=== PATIENT | male | born 1975 | race Caucasian/White ===

== ENCOUNTER 2022-07-24 19:19 | Observation (INO) ==
[2022-07-24] MEDS ORDERED: TRANDATE IVP STA (19:27)
[2022-07-24] MEDS ORDERED: ATIVAN IVP STA (19:30)
--- NOTE | 2022-07-24 19:34 | ED.PDOC ---
General ED Provider: Dr. DARREL GREENE Chief Complaint: Hypertension Stated Complaint: my bp is up---i am trying to stop drinking---i think i misunderstood instructions on my bp meds--i didnt know i was supposed to take both Time Seen by Provider: 07/24/22 19:23 Mode of Arrival: Walk-In Information Source: Patient Primary Care Provider: ANNE YEH Nursing and Triage Documentation Reviewed and Agree: Yes Does patient meet sepsis criteria?: No System Inflammatory Response Syndrome: Not Applicable Sepsis Protocol: For patient's 13 years and over: Temp is 96.8 and below OR 101 and greater Pulse >90 BPM Resp >20/minute Acutely Altered Mental Status Are patient's symptoms suggestive of a new infection, such as: -Pneumonia -Skin, Soft Tissue -Endocarditis -UTI -Bone, Joint Infection -Implantable Device -Acute Abdominal Infection -Wound Infection -Meningitis -Blood Stream Catheter Infection -Unknown Cardiovascular Complaint Exam Hypertension Complaint/Exam Onset/Duration: today Symptoms Are: Still present Timing: Constant Reported B/P Prior to Arrival: 220/120 Aggravating: Reports None Alleviating: Reports None Associated Signs and Symptoms: Reports Chest pain and Anxiety Related History: Reports Current Mendoza Inhibitors and Current Beta Kulwinder Cardiac Risk Factors: Reports Hypertension Recent Change in Medications: Yes A/V Nicking: No Papilledema Present: No JVD Present: No Carotid Bruit Present: No Femoral Pulses Bounding: Yes Differential Diagnoses: Hypertension, Hypertensive Crisis and Hypertensive Urgency Quality Indicator For Non-Traumatic Chest Pain/Syncope: EKG Performed Review of Systems Review Of Systems Constitutional: Reports No symptoms Eyes: Reports No symptoms Ears, Nose, Mouth, Throat: Reports No symptoms Respiratory: Reports Cough Cardiac: Reports Chest pain GI: Reports No symptoms : Reports No symptoms Musculoskeletal: Reports No symptoms Skin: Reports No symptoms Neurological: Reports No symptoms Endocrine: Reports No symptoms Hematologic/Lymphatic: Reports No symptoms All Other Systems: Reviewed and Negative [facility] Medical History Abnormal liver enzymes Ascending aortic aneurysm Elevated blood sugar Hypertension Transaminitis Family History FATHER FH: brain aneurysm Social History Alcohol intake: current Alcohol intake frequency: a few times a week Alcohol type: beer and other Substance use type: does not use Marital status: S SINGLE Lives independently: Yes Current gender identity: male Seatbelt use: always Water heater temperature set < 120 degrees: Yes Working smoke detector in home: Yes Physical Exam Physical Exam Appearance: Reports Well-appearing Ill-appearing: None Pain Distress: None Eyes: Reports TERRIE, EOMI and Conjunctiva clear ENT: Reports Ears normal, Nose normal and Oropharynx normal Neck: Supple Respiratory: Reports Airway patent, Breath sounds clear and Breath sounds equal Cardiovascular: Reports RRR, Pulses normal, No rub and No murmur GI/: Reports Soft, Nontender, No masses and Bowel sounds normal Musculoskeletal: Reports Normal strength, ROM intact, No edema and No calf tenderness Skin: Reports Warm, Dry and Normal color Neurological: Reports Sensation intact, Motor intact, Reflexes intact, Cranial nerves intact, Alert and Oriented Psychiatric: Reports Affect appropriate and Mood appropriate Interpretation Radiology Interpretation Radiology Interpretation By: Radiologist Radiology Results: Positive Exam Interpreted: CT Scan EKG Interpretation Time of EKG #1: 19:36 Rate: Normal Rhythm: Sinus Ectopy: None [place]: NL ST Segment: Normal Interpretation: nsr Critical Care Note Critical Care Note Total Critical Care Time (mins): 30 Course Course Hematology/Chemistry: 07/24/22 19:40 07/24/22 19:40 Orders, Labs, Meds: Lab Review 07/24/22 07/24/22 07/24/22 19:40 19:40 19:40 WBC 6.06 RBC 5.16 Hgb 15.0 Hct 44.1 MCV 85.5 MCH 29.1 MCHC 34.0 RDW Coeff of Sharlene 11.9 Plt Count 142 Immature Gran % (Auto) 0.3 Neut % (Auto) 65.7 Lymph % (Auto) 25.4 [place] % (Auto) 7.1 Eos % (Auto) 0.8 Baso % (Auto) 0.7 Neut # (Auto) 4.0 Lymph # (Auto) 1.5 [place] # (Auto) 0.4 Eos # (Auto) 0.1 Baso # (Auto) 0.0 Immature Gran # (Auto) 0.0 Sodium 136.9 Potassium 4.01 Chloride 105.5 Carbon Dioxide 25.0 Anion Gap 10.41 BUN 8.1 L Creatinine 0.71 Estimated GFR (MDRD) 118.00 BUN/Creatinine Ratio 11.40 Glucose 117.6 H Calcium 9.10 Total Bilirubin 0.98 AST 75.9 H ALT 121.3 H Alkaline Phosphatase 72.3 Troponin I < 0.012 Total Protein 8.05 Albumin 4.55 Globulin 3.50 Albumin/Globulin Ratio 1.30 Amylase 81.8 Lipase 59.9 TSH 1.040 Free T4 0.82 Urine Color Urine Clarity Urine pH Ur Specific [place] Urine Protein Urine Glucose (UA) Urine Ketones Urine Blood Urine Nitrite Urine Bilirubin Urine Urobilinogen Ur Leukocyte Esterase Urine Opiates Screen Ur Oxycodone Screen Urine Methadone Screen Ur Propoxyphene Screen Ur Barbiturates Screen U Tricyclic Antidepress Ur Phencyclidine Scrn Ur Amphetamine Screen U Methamphetamines Scrn U Benzodiazepines Scrn Urine Cocaine Screen U Cannabinoids Screen Plasma/Serum Alcohol < 10.0 Influ A Molecular Assay Influ B Molecular Assay SARS CoV-2 RNA Rapid STEPHANIE 07/24/22 07/24/22 07/24/22 19:45 19:45 20:25 WBC RBC Hgb Hct MCV MCH MCHC RDW Coeff of Sharlene Plt Count Immature Gran % (Auto) Neut % (Auto) Lymph % (Auto) [place] % (Auto) Eos % (Auto) Baso % (Auto) Neut # (Auto) Lymph # (Auto) [place] # (Auto) Eos # (Auto) Baso # (Auto) Immature Gran # (Auto) Sodium Potassium Chloride Carbon Dioxide Anion Gap BUN Creatinine Estimated GFR (MDRD) BUN/Creatinine Ratio Glucose Calcium Total Bilirubin AST ALT Alkaline Phosphatase Troponin I Total Protein Albumin Globulin Albumin/Globulin Ratio Amylase Lipase TSH Free T4 Urine Color Yellow Urine Clarity Clear Urine pH 8.0 Ur Specific [place] 1.020 Urine Protein Negative Urine Glucose (UA) Negative Urine Ketones Negative Urine Blood Negative Urine Nitrite Negative Urine Bilirubin Negative Urine Urobilinogen 0.2 Ur Leukocyte Esterase Negative Urine Opiates Screen Ur Oxycodone Screen Urine Methadone Screen Ur Propoxyphene Screen Ur Barbiturates Screen U Tricyclic Antidepress Ur Phencyclidine Scrn Ur Amphetamine Screen U Methamphetamines Scrn U Benzodiazepines Scrn Urine Cocaine Screen U Cannabinoids Screen Plasma/Serum Alcohol Influ A Molecular Assay Negative by naat Influ B Molecular Assay Negative by naat SARS CoV-2 RNA Rapid STEPHANIE Negative 07/24/22 20:25 WBC RBC Hgb Hct MCV MCH MCHC RDW Coeff of Sharlene Plt Count Immature Gran % (Auto) Neut % (Auto) Lymph % (Auto) [place] % (Auto) Eos % (Auto) Baso % (Auto) Neut # (Auto) Lymph # (Auto) [place] # (Auto) Eos # (Auto) Baso # (Auto) Immature Gran # (Auto) Sodium Potassium Chloride Carbon Dioxide Anion Gap BUN Creatinine Estimated GFR (MDRD) BUN/Creatinine Ratio Glucose Calcium Total Bilirubin AST ALT Alkaline Phosphatase Troponin I Total Protein Albumin Globulin Albumin/Globulin Ratio Amylase Lipase TSH Free T4 Urine Color Urine Clarity Urine pH Ur Specific [place] Urine Protein Urine Glucose (UA) Urine Ketones Urine Blood Urine Nitrite Urine Bilirubin Urine Urobilinogen Ur Leukocyte Esterase Urine Opiates Screen Negative Ur Oxycodone Screen Negative Urine Methadone Screen Negative Ur Propoxyphene Screen Negative Ur Barbiturates Screen Negative U Tricyclic Antidepress Negative Ur Phencyclidine Scrn Negative Ur Amphetamine Screen Negative U Methamphetamines Scrn Negative U Benzodiazepines Scrn Positive H Urine Cocaine Screen Negative U Cannabinoids Screen Negative Plasma/Serum Alcohol Influ A Molecular Assay Influ B Molecular Assay SARS CoV-2 RNA Rapid STEPHANIE Orders Category Date Time Status EKG-(ED ONLY) Stat CARDIO 07/24/22 19:21 Completed NPO REMINDER: IMAGING ONCE CARE 07/24/22 19:26 Completed ED BOARD LAYER APPLIED .ONCE EMERGENCY 07/24/22 19:21 Active ED IV/MEDIPORT/POWERPORT .ONCE EMERGENCY 07/24/22 19:21 Active AMYLASE Stat LAB 07/24/22 19:40 Completed BLOOD ALCOHOL Stat LAB 07/24/22 19:40 Completed CBC W/ AUTO DIFF Stat LAB 07/24/22 19:40 Completed COMPREHENSIVE METABOLIC PANEL Stat LAB 07/24/22 19:40 Completed FLU A & B MOLECULAR [FLU A/B MOLECULAR] Stat LAB 07/24/22 19:45 Completed FREE T4 (FREE THYROXINE) Stat LAB 07/24/22 19:40 Completed LIPASE Stat LAB 07/24/22 19:40 Completed SARS COV-2 RNA RAPID STEPHANIE Stat LAB 07/24/22 19:45 Completed THYROID STIMULATING HORMONE Stat LAB 07/24/22 19:40 Completed TROPONIN I Stat LAB 07/24/22 19:40 Completed URINALYSIS C & S IF INDICATED Stat LAB 07/24/22 20:25 Completed URINE DRUG SCREEN (RAPID FOR ED) [DRUG SCREEN, URINE, LAB 07/24/22 20:25 Completed RAPID] Stat 0.9 % Sodium Chloride [Saline Flush] MEDS 07/24/22 19:21 Active 1 syr IVF PRN PRN Enalaprilat Dihydrate [Vasotec IV] MEDS 07/24/22 19:56 Discontinued 1.25 mg IVP ONCE STA Labetalol HCl [Trandate] MEDS 07/24/22 19:27 Discontinued 20 mg IVP ONCE STA Lorazepam [Ativan] MEDS 07/24/22 19:30 Discontinued 1 mg IVP ONCE STA Nicardipine in NaCl, Iso-Osm [Cardene 20 mg/200 ml NaCl MEDS 07/24/22 20:32 Discontinued ] 20 mg in 200 ml IV .STK-MED Nicardipine in NaCl, Iso-Osm [Cardene 20 mg/200 ml NaCl MEDS 07/24/22 20:30 Active ] 20 mg in [address] CHEST PE PROTOCOL Stat RADS 07/24/22 19:26 Completed Medications Generic Name Dose Route Start Last Admin Trade Name Freq PRN Reason Stop Dose Admin Nicardipine/Sodium Chloride 20 mg in 200 mls @ 50 mls/hr 07/24/22 20:30 07/24/22 21:00 Cardene 20 Mg/200 Ml Nacl IV 7.5 mg/hr TITRATION IZABEL 75 mls/hr Titration Protocol 5 MG/HR Sodium Chloride 1 syr 07/24/22 19:21 0.9% Sodium Chloride 10 Ml Disp.Syrin IVF PRN PRN To flush IV Discontinued Medications Generic Name Dose Route Start Last Admin Trade Name Freq PRN Reason Stop Dose Admin Enalaprilat 1.25 mg 07/24/22 19:56 07/24/22 20:01 Enalaprilat Dihydrate 1.25 Mg/Ml Vial IVP 07/24/22 19:57 1.25 mg ONCE STA Administration Labetalol HCl 20 mg 07/24/22 19:27 07/24/22 19:43 Labetalol Hcl 20 Mg/4 Ml Disp.Syrin IVP 07/24/22 19:28 20 mg ONCE STA Administration Lorazepam 1 mg 07/24/22 19:30 07/24/22 19:43 Lorazepam Inj 2 Mg/Ml Vial IVP 07/24/22 19:31 1 mg ONCE STA Administration Vital Signs: Temp Pulse Resp BP Pulse Ox 07/24/22 19:31 98.6 F 109 H 20 209/143 H 96 YEYO Risk Score YEYO Risk Score: Risk Score Odds of by 30D 0 0.1 (0.1-0.2) 1 0.3 (0.2-0.3) 2 0.4 (0.3-0.5) 3 0.7 (0.6-0.9) 4 1.2 (1.0-1.5) 5 2.2 (1.9-2.6) 6 3.0 (2.5-3.6) 7 4.8 (3.8-6.1) Discharge Plan Discharge Patient Disposition: TSF SHORT-TRM HOSP Discharge Problem: Hypertensive urgency Prescriptions: No Action lisinopril 20 mg tablet 20 mg PO QDAY Qty: 30 0RF albuterol sulfate 90 mcg/actuation HFA aerosol inhaler 2 puff inhalation QID PRN (Reason: shortness of breath or wheezing) Qty: 8.5 0RF metoprolol succinate 50 mg tablet extended release 24 hr 50 mg PO QDAY 30 Days Qty: 30 0RF Did you review [place] PATIENT FINANCIAL ADVOCATE?: Not Applicable ED Provider: DARREL ROBLEDO Condition: Stable Physician Progress Note: []
[2022-07-24 19:36] VITALS: BMI 39.6
[2022-07-24 19:46] LABS: BASOPHILS % (AUTO) 0.7 % (0.0-3.0); EOSINOPHILS # (AUTO) 0.1 K/ul (0.0-0.7); EOSINOPHILS % (AUTO) 0.8 % (0.0-7.0); HEMATOCRIT 44.1 % (42.0-52.0); IMMATURE GRANULOCYTE % (AUTO) 0.3 % (0.0-5.0); LYMPHOCYTES # (AUTO) 1.5 K/uL (0.60-3.4); LYMPHOCYTES % (AUTO) 25.4 (10.0-50.0); MEAN CORPUSCULAR HEMOGLOBIN 29.1 pg (27.0-31.0); MEAN CORPUSCULAR VOLUME 85.5 fl (80.0-94.0); MONOCYTES # (AUTO) 0.4 K/uL (0.4-2.0); MONOCYTES % (AUTO) 7.1 (0-10); NEUTROPHILS % (AUTO) 65.7 % (42.2-75.2); PLATELET COUNT 142 10^3/uL (140-440); RDW COEFFICIENT OF VARIATION 11.9 % (11.6-14.8); RED BLOOD COUNT 5.16 10^6/ul (4.70-6.10); WHITE BLOOD COUNT 6.06 K/ul (4.2-10.2)
[2022-07-24] MEDS ORDERED: VASOTEC IV IVP STA (19:56)
[2022-07-24 19:58] LABS: ALANINE AMINOTRANSFERASE 121.3 U/L (0-50); ALBUMIN 4.55 g/dL (3.5-5.0); ALKALINE PHOSPHATASE 72.3 U/L (38-126); AMYLASE 81.8 U/L (30-110); ASPARTATE AMINO TRANSFERASE 75.9 U/L (17-59); BILIRUBIN,TOTAL 0.98 mg/dL (0.2-1.3); BLOOD UREA NITROGEN 8.1 mg/dL (9-20); CHLORIDE 105.5 mmol/L (98-107); CREATININE 0.71 mg/dL (0.60-1.10); GLUCOSE 117.6 mg/dL (74-106); LIPASE 59.9 U/L (23-300); POTASSIUM 4.01 mmol/L (3.5-5.1); SODIUM 136.9 mmol/L (134.5-145); TOTAL PROTEIN 8.05 g/dL (6.3-8.2)
[2022-07-24 20:06] LABS: BLOOD ALCOHOL < 10.0 mg/dL (0.0-50.0)
[2022-07-24 20:07] LABS: MOLECULAR FLU A NEGATIVE BY NAAT (NEGATIVE); MOLECULAR FLU B NEGATIVE BY NAAT (NEGATIVE)
[2022-07-24 20:21] LABS: TROPONIN I < 0.012 ng/ml (0.0000-0.120)
[2022-07-24 20:23] LABS: SARS COV-2 RNA RAPID NAAT NEGATIVE (NEGATIVE)
[2022-07-24] MEDS ORDERED: CARDENE 20 MG/200 ML NACL 20 MG/200 ML BAG IV SCH ×2 (20:30→23:00)
[2022-07-24 20:32] LABS: BILIRUBIN,URINE Negative (NEGATIVE); CLARITY,URINE Clear (CLEAR); COLOR,URINE Yellow (YELLOW); GLUCOSE, URINE (UA) Negative (NEGATIVE); KETONES,URINE Negative (NEGATIVE); LEUKOCYTE ESTERASE ,URINE Negative (NEGATIVE); NITRITE,URINE Negative (NEGATIVE); PROTEIN,URINE Negative (NEGATIVE); URINE, BLOOD Negative (NEGATIVE); UROBILINOGEN,URINE 0.2 (0.2)
[2022-07-24] MEDS ORDERED: CARDENE 20 MG/200 ML NACL 20 MG/200 ML BAG IV ONE (20:32)
[2022-07-24 20:43] LABS: AMPHETAMINE SCREEN,URINE NEGATIVE (NEGATIVE); BARBITURATE SCREEN,URINE NEGATIVE (NEGATIVE); BENZODIAZEPINES SCREEN,URINE POSITIVE (NEGATIVE); CANNABINOID SCREEN,URINE NEGATIVE (NEGATIVE); COCAIN SCREEN,URINE NEGATIVE (NEGATIVE); METHADONE URINE SCREEN NEGATIVE (NEGATIVE); METHAMPHETAMINES SCREEN,URINE NEGATIVE (NEGATIVE); OPIATE SCREEN,URINE NEGATIVE (NEGATIVE); OXYCODONE URINE SCREEN NEGATIVE (NEGATIVE); PHENCYCLIDINE SCREEN,URINE NEGATIVE (NEGATIVE); PROPOXYPHENE URINE SCREEN NEGATIVE (NEGATIVE); TRICYCLIC ANTIDEPRESSANTS URIN NEGATIVE (NEGATIVE)
--- NOTE | 2022-07-24 21:06 | CT ---
EXAM: CTA of the pulmonary arteries with contrast TECHNIQUE: CTA of the pulmonary arteries was performed with contrast. 2-D and 3-D reconstructions we re performed. HISTORY: Chest pain. History of aneurysm. COMPARISON: None. FINDINGS: Pulmonary arteries: No pulmonary embolus detected. Lungs/pleura: No mass or consolidation. No pleural effusion. Mediastinum: No adenopathy. Cardiovascular: No pericardial effusion. There is a 4.4 cm ascending thoracic aortic aneurysm. No di ssection evident. Chest wall/axillae/thoracic inlet: No mass or adenopathy. Imaged upper abdomen: Hepatic steatosis. Bones: No aggressive osseous lesion identified. IMPRESSION: 1. Negative for pulmonary embolus. 2. 4.4 cm ascending thoracic aortic aneurysm 3. Hepatic steatosis All CT scans are performed using dose optimization techniques as appropriate to the performed exam an d includes at least one of the following: Automated exposure control, adjustment of the mA and/or kV according to size, and the use of iterative reconstruction technique. All CT scans are performed using dose optimization techniques as appropriate to the performed exam an d include at least one of the following: Automated exposure control, adjustment of the mA and/or kV according t o size, and the use of iterative reconstruction technique.
[2022-07-25] MEDS ORDERED: CARDENE 20 MG/200 ML NACL 20 MG/200 ML BAG IV SCH (02:30)
[2022-07-25] MEDS: CARDENE 20 MG/200 ML NACL 20 MG/200 ML BAG IV SCH (05:54)
[2022-07-25] MEDS ORDERED: KLONOPIN PO ONE (07:13)
[2022-07-25] MEDS ORDERED: CATAPRES PO ONE ×2 (07:14→12:08)
--- NOTE | 2022-07-25 11:51 | PCM ---
Chief Complaint Chief Complaint: elevated BP, chest pain History of Present Illness History of Present Illness: Patient with alcohol use disorder. He abruptly stopped drinking 4 days ago. He presented this morning with chest pain and markedly elevated BP. Patient also has tremulousness. His BP has normalized with PO clonidine. He will be admitted for observation and treatment of acute alcohol withdrawal. Review of Systems Constitutional: Reports Weakness Eyes: Reports No symptoms Ears: Reports No symptoms Nose: Reports No symptoms Throat: Reports No symptoms Mouth: Reports No symptoms Respiratory: Reports No symptoms Cardiovascular: Reports Chest pain and Other (tachycardia, elevated BP) Gastrointestinal: Reports No symptoms Genitourinary: Reports No symptoms Neurological: Reports Tremor Musculoskeletal: Reports No symptoms Skin: Reports No symptoms Immunology: Reports No symptoms Hematology: Reports No symptoms Endocrine: Reports No symptoms Psychiatric: Reports Anxiety Habits: Reports Alcohol use Allergies Allergies Allergy/AdvReac Type Severity Reaction Status Date / Time No Known Allergies Allergy Unverified 07/24/22 19:20 [facility] Medical History Abnormal liver enzymes Ascending aortic aneurysm Elevated blood sugar Hypertension Transaminitis Family History FATHER FH: brain aneurysm Social History Alcohol intake: current Alcohol intake frequency: a few times a week Alcohol type: beer and other Substance use type: does not use Marital status: S SINGLE Lives independently: Yes Current gender identity: male Seatbelt use: always Water heater temperature set < 120 degrees: Yes Working smoke detector in home: Yes Medications Medications: Medications Generic Name Dose Route Start Last Admin Trade Name Freq PRN Reason Stop Dose Admin Nicardipine/Sodium Chloride 20 mg in 200 mls @ 50 mls/hr 07/25/22 06:00 07/25/22 08:51 Cardene 20 Mg/200 Ml Nacl IV 0 mg/hr TITRATION IZABEL 0 mls/hr Titration Protocol 5 MG/HR Sodium Chloride 1 syr 07/24/22 19:21 0.9% Sodium Chloride 10 Ml Disp.Syrin IVF PRN PRN To flush IV Body Composition Height: 6 ft 1 in Weight: 136.259 kg Body Mass Index (BMI): 39.6 Vital Signs Temperature: 97.4 F Pulse Rate: 77 Respiratory Rate: 14 Blood Pressure: 117/83 O2 Sat by Pulse Oximetry: 98 Physical Examination Appearance: Reports Ill-appearing (Patient acutely ill appearing. He is anxious and has tremor of his hands.), Obese and Other (Patient is alert and oriented. He is in NAD.) Ill-appearing: Moderate Pain Distress: None Eyes: Reports TERRIE and EOMI ENT: Reports Nose normal and Oropharynx normal Neck: Supple Respiratory: Reports Airway patent, Breath sounds clear and Breath sounds equal Cardiovascular: Reports RRR, No rub and No murmur GI/: Reports Soft, Nontender, No masses, Bowel sounds normal and No Organomegaly Musculoskeletal: Reports Normal strength, ROM intact and No edema Skin: Reports Warm, Dry and Normal color Neurological: Reports Sensation intact, Motor intact, Cranial nerves intact, Alert, Oriented and Other (coarse tremor of both hands) Psychiatric: Reports Affect appropriate, Mood appropriate and Anxious Lab/Tests/Diagnostic Imaging Lab/Tests/Diagnostic Imaging: Lab Review 07/24/22 07/24/22 07/24/22 19:40 19:40 19:40 WBC 6.06 RBC 5.16 Hgb 15.0 Hct 44.1 MCV 85.5 MCH 29.1 MCHC 34.0 RDW Coeff of Sharlene 11.9 Plt Count 142 Immature Gran % (Auto) 0.3 Neut % (Auto) 65.7 Lymph % (Auto) 25.4 [place] % (Auto) 7.1 Eos % (Auto) 0.8 Baso % (Auto) 0.7 Neut # (Auto) 4.0 Lymph # (Auto) 1.5 [place] # (Auto) 0.4 Eos # (Auto) 0.1 Baso # (Auto) 0.0 Immature Gran # (Auto) 0.0 Sodium 136.9 Potassium 4.01 Chloride 105.5 Carbon Dioxide 25.0 Anion Gap 10.41 BUN 8.1 L Creatinine 0.71 Estimated GFR (MDRD) 118.00 BUN/Creatinine Ratio 11.40 Glucose 117.6 H Calcium 9.10 Total Bilirubin 0.98 AST 75.9 H ALT 121.3 H Alkaline Phosphatase 72.3 Troponin I < 0.012 Total Protein 8.05 Albumin 4.55 Globulin 3.50 Albumin/Globulin Ratio 1.30 Amylase 81.8 Lipase 59.9 TSH 1.040 Free T4 0.82 Urine Color Urine Clarity Urine pH Ur Specific [place] Urine Protein Urine Glucose (UA) Urine Ketones Urine Blood Urine Nitrite Urine Bilirubin Urine Urobilinogen Ur Leukocyte Esterase Urine Opiates Screen Ur Oxycodone Screen Urine Methadone Screen Ur Propoxyphene Screen Ur Barbiturates Screen U Tricyclic Antidepress Ur Phencyclidine Scrn Ur Amphetamine Screen U Methamphetamines Scrn U Benzodiazepines Scrn Urine Cocaine Screen U Cannabinoids Screen Plasma/Serum Alcohol < 10.0 Influ A Molecular Assay Influ B Molecular Assay SARS CoV-2 RNA Rapid STEPHANIE 07/24/22 07/24/22 07/24/22 19:45 19:45 20:25 WBC RBC Hgb Hct MCV MCH MCHC RDW Coeff of Sharlene Plt Count Immature Gran % (Auto) Neut % (Auto) Lymph % (Auto) [place] % (Auto) Eos % (Auto) Baso % (Auto) Neut # (Auto) Lymph # (Auto) [place] # (Auto) Eos # (Auto) Baso # (Auto) Immature Gran # (Auto) Sodium Potassium Chloride Carbon Dioxide Anion Gap BUN Creatinine Estimated GFR (MDRD) BUN/Creatinine Ratio Glucose Calcium Total Bilirubin AST ALT Alkaline Phosphatase Troponin I Total Protein Albumin Globulin Albumin/Globulin Ratio Amylase Lipase TSH Free T4 Urine Color Yellow Urine Clarity Clear Urine pH 8.0 Ur Specific [place] 1.020 Urine Protein Negative Urine Glucose (UA) Negative Urine Ketones Negative Urine Blood Negative Urine Nitrite Negative Urine Bilirubin Negative Urine Urobilinogen 0.2 Ur Leukocyte Esterase Negative Urine Opiates Screen Ur Oxycodone Screen Urine Methadone Screen Ur Propoxyphene Screen Ur Barbiturates Screen U Tricyclic Antidepress Ur Phencyclidine Scrn Ur Amphetamine Screen U Methamphetamines Scrn U Benzodiazepines Scrn Urine Cocaine Screen U Cannabinoids Screen Plasma/Serum Alcohol Influ A Molecular Assay Negative by naat Influ B Molecular Assay Negative by naat SARS CoV-2 RNA Rapid STEPHANIE Negative 07/24/22 20:25 WBC RBC Hgb Hct MCV MCH MCHC RDW Coeff of Sharlene Plt Count Immature Gran % (Auto) Neut % (Auto) Lymph % (Auto) [place] % (Auto) Eos % (Auto) Baso % (Auto) Neut # (Auto) Lymph # (Auto) [place] # (Auto) Eos # (Auto) Baso # (Auto) Immature Gran # (Auto) Sodium Potassium Chloride Carbon Dioxide Anion Gap BUN Creatinine Estimated GFR (MDRD) BUN/Creatinine Ratio Glucose Calcium Total Bilirubin AST ALT Alkaline Phosphatase Troponin I Total Protein Albumin Globulin Albumin/Globulin Ratio Amylase Lipase TSH Free T4 Urine Color Urine Clarity Urine pH Ur Specific [place] Urine Protein Urine Glucose (UA) Urine Ketones Urine Blood Urine Nitrite Urine Bilirubin Urine Urobilinogen Ur Leukocyte Esterase Urine Opiates Screen Negative Ur Oxycodone Screen Negative Urine Methadone Screen Negative Ur Propoxyphene Screen Negative Ur Barbiturates Screen Negative U Tricyclic Antidepress Negative Ur Phencyclidine Scrn Negative Ur Amphetamine Screen Negative U Methamphetamines Scrn Negative U Benzodiazepines Scrn Positive H Urine Cocaine Screen Negative U Cannabinoids Screen Negative Plasma/Serum Alcohol Influ A Molecular Assay Influ B Molecular Assay SARS CoV-2 RNA Rapid STEPHANIE Orders Category Date Time Status EKG-(ED ONLY) Stat CARDIO 07/24/22 19:21 Completed NPO REMINDER: IMAGING ONCE CARE 07/24/22 19:26 Completed ED INSTRUCTOR APPAREL MANUFACTURE APPLIED .ONCE EMERGENCY 07/24/22 19:21 Active ED IV/MEDIPORT/POWERPORT .ONCE EMERGENCY 07/24/22 19:21 Active AMYLASE Stat LAB 07/24/22 19:40 Completed BLOOD ALCOHOL Stat LAB 07/24/22 19:40 Completed CBC W/ AUTO DIFF Stat LAB 07/24/22 19:40 Completed COMPREHENSIVE METABOLIC PANEL Stat LAB 07/24/22 19:40 Completed FLU A & B MOLECULAR [FLU A/B MOLECULAR] Stat LAB 07/24/22 19:45 Completed FREE T4 (FREE THYROXINE) Stat LAB 07/24/22 19:40 Completed LIPASE Stat LAB 07/24/22 19:40 Completed SARS COV-2 RNA RAPID STEPHANIE Stat LAB 07/24/22 19:45 Completed THYROID STIMULATING HORMONE Stat LAB 07/24/22 19:40 Completed TROPONIN I Stat LAB 07/24/22 19:40 Completed URINALYSIS C & S IF INDICATED Stat LAB 07/24/22 20:25 Completed URINE DRUG SCREEN (RAPID FOR ED) [DRUG SCREEN, URINE, LAB 07/24/22 20:25 Completed RAPID] Stat 0.9 % Sodium Chloride [Saline Flush] MEDS 07/24/22 19:21 Active 1 syr IVF PRN PRN Clonidine HCl [Catapres] MEDS 07/25/22 07:14 Discontinued 0.2 mg PO ONCE ONE Enalaprilat Dihydrate [Vasotec IV] MEDS 07/24/22 19:56 Discontinued 1.25 mg IVP ONCE STA Labetalol HCl [Trandate] MEDS 07/24/22 19:27 Discontinued 20 mg IVP ONCE STA Lorazepam [Ativan] MEDS 07/24/22 19:30 Discontinued 1 mg IVP ONCE STA Nicardipine in NaCl, Iso-Osm [Cardene 20 mg/200 ml NaCl MEDS 07/24/22 20:32 Discontinued ] 20 mg in 200 ml IV .STK-MED Nicardipine in NaCl, Iso-Osm [Cardene 20 mg/200 ml NaCl MEDS 07/24/22 20:30 Discontinued ] 20 mg in 200 ml IV TITRATION Nicardipine in NaCl, Iso-Osm [Cardene 20 mg/200 ml NaCl MEDS 07/24/22 23:00 Discontinued ] 20 mg in 200 ml IV TITRATION Nicardipine in NaCl, Iso-Osm [Cardene 20 mg/200 ml NaCl MEDS 07/25/22 02:30 Discontinued ] 20 mg in 200 ml IV TITRATION Nicardipine in NaCl, Iso-Osm [Cardene 20 mg/200 ml NaCl MEDS 07/25/22 06:00 Active ] 20 mg in [address] CHEST PE PROTOCOL Stat RADS 07/24/22 19:26 Completed Medications Generic Name Dose Route Start Last Admin Trade Name Freq PRN Reason Stop Dose Admin Nicardipine/Sodium Chloride 20 mg in 200 mls @ 50 mls/hr 07/25/22 06:00 07/25/22 08:51 Cardene 20 Mg/200 Ml Nacl IV 0 mg/hr TITRATION IZABEL 0 mls/hr Titration Protocol 5 MG/HR Sodium Chloride 1 syr 07/24/22 19:21 0.9% Sodium Chloride 10 Ml Disp.Syrin IVF PRN PRN To flush IV Discontinued Medications Generic Name Dose Route Start Last Admin Trade Name Freq PRN Reason Stop Dose Admin Clonidine 0.2 mg 07/25/22 07:14 07/25/22 07:19 Clonidine Hcl 0.1 Mg Tablet PO 07/25/22 07:15 0.2 mg ONCE ONE Administration Enalaprilat 1.25 mg 07/24/22 19:56 07/24/22 20:01 Enalaprilat Dihydrate 1.25 Mg/Ml Vial IVP 07/24/22 19:57 1.25 mg ONCE STA Administration Nicardipine/Sodium Chloride 20 mg in 200 mls @ 50 mls/hr 07/24/22 20:30 07/24/22 21:00 Cardene 20 Mg/200 Ml Nacl IV 7.5 mg/hr TITRATION IZABEL 75 mls/hr Titration Protocol 5 MG/HR Nicardipine/Sodium Chloride 20 mg in 200 mls @ 75 mls/hr 07/24/22 23:00 00:10 Cardene 20 Mg/200 Ml Nacl IV 7.5 mg/hr TITRATION IZABEL 75 mls/hr Titration Protocol 7.5 MG/HR Nicardipine/Sodium Chloride 20 mg in 200 mls @ 75 mls/hr 07/25/22 02:30 07/25/22 03:19 Cardene 20 Mg/200 Ml Nacl IV 5 mg/hr TITRATION IZABEL 50 mls/hr Titration Protocol 7.5 MG/HR Labetalol HCl 20 mg 07/24/22 19:27 07/24/22 19:43 Labetalol Hcl 20 Mg/4 Ml Disp.Syrin IVP 07/24/22 19:28 20 mg ONCE STA Administration Lorazepam 1 mg 07/24/22 19:30 07/24/22 19:43 Lorazepam Inj 2 Mg/Ml Vial IVP 07/24/22 19:31 1 mg ONCE STA Administration Assessment (1) Alcohol use disorder: Status: Acute Code(s): F19.90 - Other psychoactive substance use, unspecified, uncomplicated SNOMED Code(s): 2680366 (2) Acute hyperactive alcohol withdrawal delirium: Status: Acute Code(s): F10.931 - Alcohol use, unspecified with withdrawal delirium SNOMED Code(s): 4715851 (3) Ascending aortic aneurysm: Status: Acute Code(s): I71.21 - Aneurysm of the ascending aorta, without rupture SNOMED Code(s): 722339538 (4) Abnormal liver enzymes: Status: Acute Code(s): R74.8 - Abnormal levels of other serum enzymes SNOMED Code(s): 423619470 Plan Plan: Patient to be admitted for observation and treatment of his acute alcohol withdrawal. He will receive PO clonidine PRN for elevated BP/pulse. Ativan for anxiety and tremor. IV fluid hydration.
[2022-07-25] MEDS ORDERED: ATIVAN PO PRN (12:14)
[2022-07-25] MEDS ORDERED: VENTOLIN HFA (PER PUFF-WITH SPACER) IH SCH (12:30)
[2022-07-25] MEDS: SODIUM CHLORIDE 1,000 ML IV SCH ×2 (13:23→20:03)
[2022-07-25] MEDS ORDERED: VENTOLIN HFA (PER PUFF-WITH SPACER) IH PRN ×2 (13:30→14:47)
[2022-07-25] MEDS ORDERED: PROAIR HFA (SINGLE PATIENT USE) IH SCH (18:00)
[2022-07-25] MEDS: ZESTRIL PO SCH (20:03)
[2022-07-26] MEDS: CATAPRES PO PRN ×2 (01:27→19:06)
[2022-07-26] MEDS: SODIUM CHLORIDE 1,000 ML IV SCH ×2 (04:08→16:46)
[2022-07-26 05:17] LABS: BASOPHILS % (AUTO) 0.5 % (0.0-3.0); EOSINOPHILS # (AUTO) 0.1 K/ul (0.0-0.7); EOSINOPHILS % (AUTO) 2.1 % (0.0-7.0); HEMATOCRIT 38.6 % (42.0-52.0); HEMOGLOBIN 13.2 g/dl (14.0-18.0); IMMATURE GRANULOCYTE % (AUTO) 0.2 % (0.0-5.0); LYMPHOCYTES # (AUTO) 1.5 K/uL (0.60-3.4); LYMPHOCYTES % (AUTO) 34.7 (10.0-50.0); MEAN CORPUSCULAR HEMOGLOBIN 29.5 pg (27.0-31.0); MEAN CORPUSCULAR HGB CONC 34.2 (31.8-35.4); MEAN CORPUSCULAR VOLUME 86.4 fl (80.0-94.0); MONOCYTES # (AUTO) 0.4 K/uL (0.4-2.0); NEUTROPHILS # (AUTO) 2.3 K/ul (2.0-6.9); NEUTROPHILS % (AUTO) 52.5 % (42.2-75.2); PLATELET COUNT 115 10^3/uL (140-440); RDW COEFFICIENT OF VARIATION 12.1 % (11.6-14.8); RED BLOOD COUNT 4.47 10^6/ul (4.70-6.10); WHITE BLOOD COUNT 4.29 K/ul (4.2-10.2)
[2022-07-26] MEDS: CARDENE 20 MG/200 ML NACL 20 MG/200 ML BAG IV SCH (05:20)
[2022-07-26 05:27] LABS: ALANINE AMINOTRANSFERASE 83.9 U/L (0-50); ALBUMIN 3.87 g/dL (3.5-5.0); ALKALINE PHOSPHATASE 48.4 U/L (38-126); BILIRUBIN,TOTAL 1.53 mg/dL (0.2-1.3); CALCIUM 8.6 mg/dL (8.4-10.2); CARBON DIOXIDE 26.9 mmol/L (22-30.0); CHLORIDE 108.1 mmol/L (98-107); CREATININE 0.74 mg/dL (0.60-1.10); GLUCOSE 111.6 mg/dL (74-106); POTASSIUM 3.99 mmol/L (3.5-5.1); SODIUM 136.2 mmol/L (134.5-145); TOTAL PROTEIN 6.88 g/dL (6.3-8.2)
[2022-07-26] MEDS: ZESTRIL PO SCH ×2 (10:02→20:15)
[2022-07-26] MEDS: TOPROL XL PO SCH (10:03)
--- NOTE | 2022-07-26 12:35 | PCM.PROG ---
Date Seen by Provider: 07/26/22 Time Seen by Provider: 12:33 Subjective: dx. alcohol withdrawal pt less shaky today, speech fluent, no diaphoresis or abdominal cramps Objective: Vitals: T=98.1 F, P=74, R=16, XQ=951/101, SPO2=96 HEENT: []conjunctiva clear Neck: []supple Lungs: [] no respiratory distress CVS: []rrr Abdomen: []nondistended Extremities: []bryanna Neurological: []alert and oriented Skin: []pink Lab/Tests/Diagnostic Imaging: [] K+ 3.9, wbc 4.2, Hb 13.2 (1) Alcohol use disorder: Status: Acute Code(s): F19.90 - Other psychoactive substance use, unspecified, uncomplicated SNOMED Code(s): 9024535 (2) Acute hyperactive alcohol withdrawal delirium: Status: Acute Code(s): F10.931 - Alcohol use, unspecified with withdrawal delirium SNOMED Code(s): 8886875 (3) Ascending aortic aneurysm: Status: Acute Code(s): I71.21 - Aneurysm of the ascending aorta, without rupture SNOMED Code(s): 128808603 (4) Abnormal liver enzymes: Status: Acute Code(s): R74.8 - Abnormal levels of other serum enzymes SNOMED Code(s): 424910485 Plan: continue withdrawal support D/C home in morning care to Dr Pineda at 19:00
[2022-07-27 05:10] VITALS: TEMP 98
[2022-07-27] MEDS: CATAPRES PO PRN (05:41)
[2022-07-27 05:43] LABS: BASOPHILS % (AUTO) 0.7 % (0.0-3.0); EOSINOPHILS # (AUTO) 0.2 K/ul (0.0-0.7); EOSINOPHILS % (AUTO) 2.8 % (0.0-7.0); HEMATOCRIT 41.1 % (42.0-52.0); HEMOGLOBIN 14.1 g/dl (14.0-18.0); IMMATURE GRANULOCYTE % (AUTO) 0.2 % (0.0-5.0); LYMPHOCYTES # (AUTO) 1.7 K/uL (0.60-3.4); LYMPHOCYTES % (AUTO) 28.8 (10.0-50.0); MEAN CORPUSCULAR HEMOGLOBIN 29.3 pg (27.0-31.0); MEAN CORPUSCULAR HGB CONC 34.3 (31.8-35.4); MEAN CORPUSCULAR VOLUME 85.4 fl (80.0-94.0); MONOCYTES # (AUTO) 0.6 K/uL (0.4-2.0); MONOCYTES % (AUTO) 9.5 (0-10); NEUTROPHILS # (AUTO) 3.3 K/ul (2.0-6.9); PLATELET COUNT 119 10^3/uL (140-440); RDW COEFFICIENT OF VARIATION 12.1 % (11.6-14.8); RED BLOOD COUNT 4.81 10^6/ul (4.70-6.10); WHITE BLOOD COUNT 5.76 K/ul (4.2-10.2)
[2022-07-27 06:09] LABS: ALANINE AMINOTRANSFERASE 96.2 U/L (0-50); ALBUMIN 4.22 g/dL (3.5-5.0); ALKALINE PHOSPHATASE 54.8 U/L (38-126); ASPARTATE AMINO TRANSFERASE 60.2 U/L (17-59); BILIRUBIN,TOTAL 1.46 mg/dL (0.2-1.3); CALCIUM 8.94 mg/dL (8.4-10.2); CHLORIDE 105.9 mmol/L (98-107); CREATININE 0.84 mg/dL (0.60-1.10); GLUCOSE 107.2 mg/dL (74-106); POTASSIUM 3.77 mmol/L (3.5-5.1); TOTAL PROTEIN 7.34 g/dL (6.3-8.2)
[2022-07-27 07:24] VITALS: BP 141/86
[2022-07-27] MEDS: ZESTRIL PO SCH (08:34)
[2022-07-27] MEDS: TOPROL XL PO SCH (08:34)
--- NOTE | 2022-07-27 10:24 | PCM.PROG ---
Date Seen by Provider: 07/27/22 Time Seen by Provider: 09:20 Subjective: Patient has no complaints. Asking to go home. Tolerating diet. Objective: Vitals: T=98.0 F, P=57, R=18, EL=625/86, SPO2=96 BP much better controlled. Alert and in NAD. HEENT: [] Neck: []Supple. Lungs: [] Clear. BS equal. CVS: [] RRR. Abdomen: [] Extremities: [] Neurological: []No tremor. Skin: [] Lab/Tests/Diagnostic Imaging: [] (1) Alcohol use disorder: Status: Acute Code(s): F19.90 - Other psychoactive substance use, unspecified, uncomplicated SNOMED Code(s): 9454990 Assessment: Long discussion with patient about drinking cessation. He will be given information on outpatient alcohol treatment programs and also AA. (2) Acute hyperactive alcohol withdrawal delirium: Status: Acute Code(s): F10.931 - Alcohol use, unspecified with withdrawal delirium SNOMED Code(s): 0416053 Assessment: Resolved. (3) Ascending aortic aneurysm: Status: Acute Code(s): I71.21 - Aneurysm of the ascending aorta, without rupture SNOMED Code(s): 584463159 (4) Abnormal liver enzymes: Status: Acute Code(s): R74.8 - Abnormal levels of other serum enzymes SNOMED Code(s): 394033720 (5) Hypertension: Status: Acute Code(s): I10 - Essential (primary) hypertension SNOMED Code(s): 49362809 Assessment: Increase lisinopril to 20mg BID. Plan: Patient is to see his PCP in 2 days.
--- NOTE | 2022-07-27 10:30 | PCM.DC ---
Final Diagnosis: alcohol use disorder acute alcohol withdrawal hypertension ascending aortic aneurysm elevated liver enzymes Physical Exam Appearance: Well-appearing, No pain distress, Well-nourished and Other (Patient is alert and appears well. No tremor. ) Ill-appearing: None Pain Distress: None Eyes: TERRIE and EOMI ENT: Nose normal and Oropharynx normal Neck: Supple Respiratory: Airway patent, Breath sounds clear and Breath sounds equal Cardiovascular: RRR, No rub and No murmur GI/: Soft, Nontender, No masses and Bowel sounds normal Musculoskeletal: Normal strength, ROM intact and No edema Skin: Warm, Dry and Normal color Neurological: Sensation intact, Motor intact, Alert and Oriented Psychiatric: Affect appropriate and Mood appropriate (1) Alcohol use disorder: Status: Acute Code(s): F19.90 - Other psychoactive substance use, unspecified, uncomplicated SNOMED Code(s): 6882448 (2) Acute hyperactive alcohol withdrawal delirium: Status: Acute Code(s): F10.931 - Alcohol use, unspecified with withdrawal delirium SNOMED Code(s): 0270285 (3) Ascending aortic aneurysm: Status: Acute Code(s): I71.21 - Aneurysm of the ascending aorta, without rupture SNOMED Code(s): 407404614 (4) Abnormal liver enzymes: Status: Acute Code(s): R74.8 - Abnormal levels of other serum enzymes SNOMED Code(s): 125975493 (5) Hypertension: Status: Acute Code(s): I10 - Essential (primary) hypertension SNOMED Code(s): 52484715 Reason for Hospitalization: Patient admitted with acute alcohol withdrawal and hypertensive urgency. Prognosis/Condition at Discharge: Condition at discharge was good. Medications at Discharge: Patient discharged on same medications as he was taking at admission except lisinopril increased to 20mg BID Education Provided to Patient and Family: alcohol use disorder Follow-ups: Follow up with PCP in 2 days as already scheduled. Discharge Disposition: Home Hospital Course: Patient admitted with acute alcohol withdrawal. He had markedly elevated BP for which he received clonidine as well as his regular antihypertensives. He received ativan for tremor and anxiety. He improved clinically and was discharged in good condition on 07/27/22. Plan: Follow up with PCP in 2 days.
== END 2022-07-27 10:24 | disposition home or self-care (01) ==
LOC: MEDSURG A 19:19 → ED 19:19 → MEDSURG A 07-25 12:56
PROVIDERS: ADMIT Surgery; ATTEND Surgery
DX: F19.90 Other psychoactive substance use, unspecified, uncomplicated; Z20.822 Contact with and (suspected) exposure to COVID-19; I16.0 Hypertensive urgency; I71.21 Aneurysm of the ascending aorta, without rupture; F10.931 Alcohol use, unspecified with withdrawal delirium; I10 Essential (primary) hypertension; R74.8 Abnormal levels of other serum enzymes